=== PATIENT | female | born 2005 | race Caucasian/White ===

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

== ENCOUNTER 2024-02-03 10:07 | Emergency (ER) | payer MEDICAID ==
[~2024-02-03] VITALS: Ht 157.5 cm; Wt 60.0 kg
[~2024-02-03 10:07] MED LIST changes: +MECL-299 PO; +NAPR-681 PO; +SULF1TAB48 MT
[2024-02-03 10:31] VITALS: O2SAT 99
[2024-02-03 12:13] LABS: CLARITY URINE CLEAR (CLEAR); COLOR URINE YELLOW (YELLOW); GLUCOSE URINE NEGATIVE (NEGATIVE); KETONES URINE NEGATIVE (NEGATIVE); LEUKOCYTE ESTERASE URINE 3+ (NEGATIVE); NITRITE URINE NEGATIVE (NEGATIVE); OCCULT BLOOD URINE NEGATIVE (NEGATIVE); PROTEIN URINE NEGATIVE (NEGATIVE); SPECIFIC GRAVITY URINE 1.008 (1.005-1.030); UROBILINOGEN URINE 0.2 E.U./dL (0.2-1.0)
[2024-02-03 12:29] LABS: BACTERIA URINE 2+; RBC URINE 0-2 /hpf (0-2); SQUAMOUS EPITHELIAL CELL URINE 2+ /lpf (RARE/1+); YEAST URINE NONE SEEN
[2024-02-03] MEDS ORDERED: METR-167 MT (13:15)
[2024-02-03 13:31] VITALS: BP 125/76; PULSE 75; RESP 16; TEMP 36.94740; O2SAT 99
== END 2024-02-03 13:36 | disposition home or self-care (01) ==
LOC: ER 10:17
DX: O26.891 Other specified pregnancy related conditions, first trimester (principal); Z90.49 Acquired absence of other specified parts of digestive tract; Z3A.00 Weeks of gestation of pregnancy not specified
CPT/HCPCS: 81003; 87210; 99283

== ENCOUNTER 2024-02-24 14:47 | Emergency (ER) | payer MEDICAID ==
[~2024-02-24] VITALS: Ht 160 cm; Wt 61.0 kg
[~2024-02-24 14:47] MED LIST changes: +METR-167 MT; +ONDA-239 PO; -ONDA4TAB11 PO
[2024-02-24 14:54] VITALS: BP 101/58; TEMP 98.7; O2SAT 99
[2024-02-24 14:59] VITALS: PULSE 100; RESP 18; O2SAT 91
== END 2024-02-24 16:04 | disposition left against medical advice (07) ==
LOC: ER 14:59
DX: N93.9 Abnormal uterine and vaginal bleeding, unspecified (principal); Z53.21 Procedure and treatment not carried out due to patient leaving prior to being seen by health care provider